=== PATIENT | female | born 1970 | race Caucasian/White ===

== ENCOUNTER 2017-03-22 19:45 | Emergency (ER) | payer OTHER ==
[~2017-03-22] VITALS: Ht 162.6 cm; Wt 68.2 kg
[~2017-03-22 19:45] MED LIST: IBUP-22 PO; LEVO175T5 PO; OMEP20CA11 PO; OXYC1TAB24 PO
[2017-03-22 19:51] VITALS: BP 128/86; PULSE 82; RESP 17; O2SAT 95
--- NOTE | 2017-03-22 22:16 | ED.REPORT ---
HPI-Headache Date of Service Mar 22, 2017 ED Provider: Dr. Laurent The pt is a 47 y/o female with a hx of migraines, multiple sclerosis and treated Graves' disease who presents to the ED from urgent care complaining of sudden, lancinating right parietal headache that repeats every 30 seconds since yesterday. She has never experienced a similar headache before. She has also complains of chest heaviness, sore throat, non-productive cough, and fever of 100.7 for the last 2 days. She denies vision change, watery eyes, photophobia, intolerance for sound, change in speech, confusion, right sided facial pain, nausea, and weakness and numbness in lower extremities. Nursing Notes Stated Complaint: HEADACHE,COUGH, SORE THROAT Chief Complaint: Headache Nursing Notes Reviewed: Yes Allergies: Coded Allergies: acetaminophen (Verified Allergy, Unknown, UNKNOWN, 10/11/14) hydrocodone bitartrate (Verified Allergy, Unknown, UNKNOWN, 10/11/14) metoclopramide (Verified Allergy, Unknown, 03/22/17) Scheduled Levothyroxine (Levothyroxine) 175 Mcg Tablet 175 MCG PO DAILY Omeprazole (Omeprazole) 20 Mg Capsule.dr 20 MG PO DAILY Scheduled PRN Ibuprofen (Motrin Ib) 200 Mg Tablet 200-600 MG PO Q6H PRN PRN PRN POSTOP Rizatriptan ODT (Rizatriptan) 10 Mg Tablet 10 MG PO [id number] PRN PRN cluster LERMA Sumatriptan Succinate (Sumatriptan Succinate) 6 Mg/0.5 Ml Syringe 6 MG SQ [id number] PRN PRN cluster headache oxyCODONE-Acetaminophen 5-325 mg (oxyCODONE-Acetaminophen 5-325 mg) 1 Each Tablet 1-2 TAB PO Q4H PRN PRN For Pain POSTOP General Time Seen by MD: 22:15 Chief Complaint Headache Hx Obtained From: Patient Arrived By: Walk-in Sudden in Onset?: Yes Onset Occurred: Yesterday Symptom Duration: Intermittent Location: : Parietal right Quality: Painful Severity: Current: Moderate Severity: Maximum: Severe Recent Healthcare: No recent doctor visit Similar Sx Previous: No Past Medical History Past Medical History Migraines Multiple sclerosis Past Surgical History none reported Smoking History Current Some Day Smoker Social History Alcohol Use: Denies alcohol use Ambulatory Status Independent Review of Systems Denies: watery eyes Denies: photophobia Denies: intolerance of sound Denies: right sided facial pain Constitutional: Reports: Fever Ears / Nose / Throat: Reports: Sore throat GI: Denies: Nausea Neurologic: Reports: Headache, Denies: Confusion, Numbness (lower extremities), Unable to speak, Vision change, Weakness (lower extremities) Complete sys rev & neg: except as marked. Respiratory: Reports: Non-productive cough Cardiovascular: Reports: Chest pain Physical Exam Initial Vital Signs Vital Signs (First) Date Time Temp Pulse Resp B/P Pulse Ox O2 Delivery O2 Flow Rate FiO2 03/22/17 19:51 37.3 82 17 128/86 95 Room Air Initial VS: Reviewed ENT: Mucous membranes moist, Conjunctiva normal, No scleral icterus Respiratory: Breath sounds normal, Clear to auscultation, No respiratory distress Cardiovascular: Regular rate & rhythm, Heart sounds normal, Intact distal pulses Abdomen / GI: Soft, Non-tender, No guarding, No rebound, No distention Extremities: Vascular intact, Neuro intact, No swelling, No tenderness Skin: Warm, Dry, No cyanosis Psychiatric: Mood/affect normal, Behavior normal, Normal thought content General/Constitutional: Awake, Alert, No acute distress Head / Eyes: Atraumatic, Normocephalic, PERRL, EOMI Neck: Atraumatic, Supple, No meningismus Neurologic: Oriented X3, Speech NL, No motor deficits, No sensory deficits, CN II - XII intact, Reflexes equal bilat, Cerebellar NL, Memory NL, Gait NL Thorough neurological exam is negative. Interpretation & Diagnostics Lab Results Interpretation Result Diagram: 03/22/17223403/22/172234 Test 03/22/17 22:35 White Blood Count 2.9th/mm3 (3.8-10.1) Red Blood Count 4.54mil/mm3 (3.90-5.20) Hemoglobin 13.7g/dL (12.0-15.6) Hematocrit 40.9% (35.0-46.0) Mean Corpuscular Volume 90.1fL (81-100) Mean Corpuscular Hemoglobin 30.2pg (27.0-35.0) Mean Corpuscular Hemoglobin Concent 33.5% (32.0-37.0) Red Cell Distribution Width 12.2% (12.3-15.4) Platelet Count 151bil/L (150-400) Neutrophils (%) (Auto) 57.9% (40-74) Lymphocytes (%) (Auto) 23.7% (14-46) Monocytes (%) (Auto) 15.3% (4-12) Eosinophils (%) (Auto) 1.4% (0-5) Basophils (%) (Auto) 1.0% (0-3) Sodium Level 138mEq/L (134-144) Potassium Level 3.9mEq/L (3.5-5.2) Chloride Level 101mEq/L (97-108) Carbon Dioxide Level 23mmol/L (18-29) Blood Urea Nitrogen 14mg/dL (6-24) Creatinine 0.57mg/dL (0.57-1.00) Estimat Glomerular Filtration Rate 163mL/min (>59) Glucose Level 99mg/dL (60-99) Calcium Level 9.0mg/dL (8.5-10.1) Total Bilirubin 0.2mg/dL (0.0-1.2) Aspartate Amino Transf (AST/SGOT) 80U/L (0-50) Alanine Aminotransferase (ALT/SGPT) 130U/L (0-32) Alkaline Phosphatase 138U/L (25-150) Troponin T 0.010ug/L (0.0-0.011) Total Protein 6.8g/dL (6.4-8.4) Albumin 4.0g/dL (3.4-5.0) Hold Alatorre Top Tube Received (Received) ECG Interpretation ECG Interpretation: Consider LVH. Anterior Q waves, possibly due to LVH. Time: 22:41 Interpreted by: ED physician Normal ECG Interpretation: Normal rate (69), Normal sinus rhythm CT Head Interpretation CONCLUSION: Normal. This report was transmitted to the emergency room at 03/23/2017 - 12:07:32 AM PDT. Study: Head CT no contrast Interpretation / Wet Read by: Interpret - Radiologist Re-Eval/Medical Decision Med Decision/Clinical Course 47-year-old multiple sclerosis mostly quiescent recently, presents with lancinating right-sided headache that appears to be consistent with cluster headache. She has a background migraine history with this is completely different. CT scan is negative. She is improved a little bit with oxygen but improved more so with dihydroergotamine, Haldol, Benadryl, and Decadron. Discharged home now for sleep. Home with sumatriptan and/or Maxalt as the alternative. Follow up with PCP. Smoking cessation strongly advised. Re-Evaluation/Progress : Time of Eval: 00:43 )( Patient Status: Condition improved Re-Evaluation/Progress Note: Pt's headache is not very much improved. Counseled Regarding: Diagnosis, Lab results, Need for follow-up, When/why to return to ED Discharge & Departure Impression: Primary Impression: Cluster headache Headache chronicity pattern: unspecified pattern Intractability: intractable Qualified Code: G44.001 - Cluster headache syndrome, unspecified, intractable Disposition: Home Discharge Condition All VS Reviewed: Yes Condition: Improved Patient Instructions: Cluster Headache (ED) Additional Instructions: This appears to be cluster headache. This is associated with smoking most primarily, and it would be best if you quit. Begin sumatriptan injection for similar episodes. Alternatively, you can use Maxalt under the tongue, but it is commonly not covered by insurance. You can buy it most affordably at [facility]. Follow-up with your doctor in the office. Return if any immediate issues over the weekend. Referrals: Marie Tran MD (PCP) Brad Attestation Portions of this note were transcribed by Pooja Coreas. I, Dr. Laurent personally performed the history, physical exam and medical decision-making; I reviewed and confirmed the accuracy of the information in the transcribed note. Signed by: Brad Gallego, 03/23/2017. copies to: Marie Tran MD, Christopher W MD Mar 22, 2017 22:16 Usama Bland Mar 22, 2017 23:37 POOJA COREAS Mar 23, 2017 00:40
[2017-03-22 22:48] LABS: EOSINOPHILS % (AUTO) 1.4 % (0-5); MONOCYTES % (AUTO) 15.3 % (4-12); Mean Corpuscular Hemoglobin 30.2 pg (27.0-35.0); Mean Corpuscular Volume 90.1 fL (81-100); NEUTROPHILS % (AUTO) 57.9 % (40-74); Platelet Count 151 bil/L (150-400)
[2017-03-22 23:04] LABS: TROPONIN T 0.01 ug/L (0.0-0.011)
[2017-03-22 23:13] VITALS: BP 119/69; PULSE 73; RESP 14; O2SAT 97
[2017-03-23] MEDS ORDERED: Haloperidol 5 mg/mL Inj IVPUSH ONE (00:50)
[2017-03-23] MEDS ORDERED: DIHYDROERGOTAMINE 1 MG/ML IV ONE (00:50)
[2017-03-23] MEDS ORDERED: Dexamethasone 10 mg/mL Inj IVPUSH ONE (00:50)
[2017-03-23] MEDS ORDERED: 0.9% Sodium Chloride 50 ML ONE (00:56)
[2017-03-23] MEDS ORDERED: [UNRECOGNIZED DRUG - CODE] SQ (02:39)
[2017-03-23] MEDS ORDERED: RIZA10TA28 PO (02:40)
[2017-03-23 02:51] VITALS: BP_SYST 117; BP_SYST 121; BP_DIAS 68; BP_DIAS 74; PULSE 68; PULSE 77; RESP 16; RESP 19; O2SAT 95; O2SAT 98
--- NOTE | 2017-03-23 06:22 | DRSVH ---
PROCEDURE: X-RAY CHEST, TWO VIEWS ([id number]) INDICATIONS: 47 year-old female with chest pain for several days. TECHNIQUE: 2 views of the chest were acquired. COMPARISON: [facility], CR, CHEST 2VW, 12/17/2014, 19:20. [facility], CR, CHEST 2VW, 09/10/2014, 10:59 AM. [facility], CR, CHEST 2VW, 10/09/2012, 12:40. FINDINGS: Surgical changes and devices: Patient is status post cholecystectomy. Lungs and pleura: No pleural effusions or pneumothorax. Lungs are clear. Mediastinum: Mediastinal contours are normal. Heart size is normal. Bones and chest wall: No suspicious bony abnormalities. Soft tissues appear unremarkable. IMPRESSION: No acute cardiopulmonary disease. Dictated by: Josafat Ling M.D. on 03/23/2017 at 6:20 Approved by: Josafat Ling M.D. on 03/23/2017 at 6:21
--- NOTE | 2017-03-23 06:57 | DRSVH ---
PROCEDURE: CT BRAIN WITHOUT CONTRAST ([id number]) INDICATIONS: 47 year-old female with right-sided headaches. TECHNIQUE: Noncontrast 4.5 mm thick angled axial sections acquired from the foramen magnum to the vertex, with c oronal reformats. COMPARISON: [facility], MR, MS BRAIN W & W/O CONT, 08/06/2013, 14:44. [facility], CT, BRAIN W/O CONTRAST, 05/08/2009, 2:24. FINDINGS: Preliminary interpretation rendered by [facility]. Image quality: Excellent. CSF spaces: Basal cisterns are patent. No extra-axial fluid collections. Ventricles are normal in size and shape. Brain: No midline shift. No intracranial masses or hemorrhage. Lucia-white matter interface is inta ct. White matter hypodensity adjacent to the anterior horn of the right lateral ventricle is unchange d since 2008. Skull and face: Calvarium and visualized facial bones are intact, without suspicious lesions. Sinuses: Visualized sinuses and mastoids are clear. IMPRESSION: 1. No acute intracranial abnormalities to explain headaches. 2. White matter lesion adjacent to the anterior horn of the right lateral ventricle is unchanged sinc e 2008, consistent with demyelinating plaque in the setting of known multiple sclerosis. Dictated by: Josafat Ling M.D. on 03/23/2017 at 6:50 Approved by: Josafat Ling M.D. on 03/23/2017 at 6:55
== END 2017-03-23 03:00 | disposition home or self-care (01) ==
LOC: SED 19:45
DX: G44.001 Cluster headache syndrome, unspecified, intractable (principal); R07.89 Other chest pain; J02.9 Acute pharyngitis, unspecified; R50.9 Fever, unspecified; G43.909 Migraine, unspecified, not intractable, without status migrainosus; E05.00 Thyrotoxicosis with diffuse goiter without thyrotoxic crisis or storm; G35 Multiple sclerosis; F17.200 Nicotine dependence, unspecified, uncomplicated; Z88.5 Allergy status to narcotic agent; Z88.6 Allergy status to analgesic agent; Z88.8 Allergy status to other drugs, medicaments and biological substances
CPT/HCPCS: 36415; 70450; 71020; 80053; 84484; 85025; 93005; 96361; 96374; 96375; 99285; J1100; J1110; J1200; J1630